=== PATIENT | female | born 1965 | race Caucasian/White ===

== ENCOUNTER 2018-09-30 07:29 | Emergency (ER) | payer OTHER ==
[2018-09-30 07:37] VITALS: BP 120/85; PULSE 85; TEMP 98.2; BMI 23.8
[2018-09-30] MEDS ORDERED: ALBUTEROL SO4 2.5/IPRATROPIUM 0.5 INH SOL 3 ML VIAL.NEB. NEB ONE ×2 (08:02→08:13)
--- NOTE | 2018-09-30 08:19 | PDOC ---
History of Present Illness - General Chief Complaint: Cold Symptoms Stated Complaint: ASTHMA/SHORTNESS OF BREATH Time Seen by Provider: 09/30/18 07:52 History Source: Patient Exam Limitations: Clinical Condition - History of Present Illness Initial Comments: 09/30/18 08:15 Patient with history of asthma and anxiety present with complaint of one month history of persistent cough, nasal congestion, runny nose and intermittent shortness of breath. Patient reported she has had 3 visits to urgent care and was treated with a nebulizer for asthma exacerbation discharged home on prednisone for symptoms still persist. Patient reported had x-rays done over week ago which was normal. Patient report fatigue for over 2 weeks now. Patient denies fever, chills, nausea or vomiting. Patient denies shortness of breath now or chest pain. Patient denies any other symptoms Timing/Duration: other (1 month) Past History - Past Medical History Allergies/Adverse Reactions: Allergies Allergy/AdvReac Type Severity Reaction Status Date / Time No Known Allergies Allergy Verified 09/30/18 07:36 Home Medications: Ambulatory Orders Albuterol Sulfate Inhaler - [Ventolin Hfa Inhaler -] 1 - 2 inh PO Q4H 09/30/18 Duloxetine HCl [Cymbalta] 60 mg PO DAILY 09/30/18 Ipratropium [place] 2 spray NS BID PRN #1 spray 09/30/18 Loratadine 10 mg PO DAILY #10 capsule 09/30/18 Lorazepam [Ativan] 1 mg PO DAILY 09/30/18 Methylprednisolone [Medrol Dose Clive] 4 mg PO ASDIR #21 tablet 09/30/18 Tramadol HCl [Tramadol HCl ER] 200 mg PO HS 09/30/18 Asthma: Yes COPD: No Dialysis: No Hypercholesterolemia: No Other medical history: Rheumatoid artritis, Anxiety - Surgical History Cardiac Surgery: No - Suicide/Smoking/Psychosocial Hx Smoking History: Former smoker Have you smoked in the past 12 months: No Information on smoking cessation initiated: No Hx Alcohol Use: No Drug/Substance Use Hx: No Review of Systems - Review of Systems Able to Perform ROS?: Yes Is the patient limited Spanish proficient: No Constitutional: Yes: Malaise. No: Chills, Fever HEENTM: Yes: Symptoms Reported, See HPI, Nose Congestion. No: Eye Pain, Blurred Vision, Tearing, Recent change in vision, Double Vision, Cataracts, Ear Pain, Ocular Prothesis, Ear Discharge, Nose Pain, Tinnitus, Nose Bleeding, Hearing Loss, Throat Pain, Throat Swelling, Mouth Pain, Dental Problems, Difficulty Swallowing, Mouth Swelling, Other Respiratory: Yes: Symptoms reported, See HPI, Cough, Shortness of Breath ( intermittent), Wheezing. No: Orthopnea, SOB with Exertion, SOB at Rest, Stridor , Productive cough, Hemoptysis, Other Cardiac (ROS): No: Symptoms Reported, See HPI, Chest Pain, Edema, Irregular Heart Rate, Lightheadedness, Palpitations, Syncope, Chest Tightness, Other ABD/GI: No: Nausea, Vomiting All Other Systems: Reviewed and Negative *Physical Exam - Vital Signs Last Vital Signs Temp Pulse Resp BP Pulse Ox 98.2 F 85 18 120/85 100 09/30/18 07:34 09/30/18 07:34 09/30/18 07:34 09/30/18 07:34 09/30/18 07:34 - Physical Exam Comments: 09/30/18 08:18 GENERAL: Well developed, well nourished. Awake and alert. No acute distress. HEENT: Normocephalic, atraumatic. PERRLA, EOMI. No conjunctival pallor. Sclera are non-icteric. Moist mucous membranes. Oropharynx is clear. NECK: Supple. Full ROM. CARDIOVASCULAR: Regular rate and rhythm. No murmurs, rubs, or gallops. Distal pulses are 2+ and symmetric. PULMONARY: Mild diffuse wheezing. No evidence of respiratory distress. No rales or rhonchi. ABDOMINAL: Soft. Non-tender. Non-distended. No rebound or guarding. No organomegaly. Normoactive bowel sounds. EXTREMITIES: No cyanosis. SKIN: Warm and dry. Normal capillary refill. No rashes. No jaundice. NEUROLOGICAL: Alert, awake, appropriate. Gait is normal without ataxia. PSYCHIATRIC: Cooperative. Good eye contact. Appropriate mood General Appearance: Yes: Nourished, Appropriately Dressed. No: Apparent Distress Moderate Sedation - Procedure Monitoring Vital Signs: Procedure Monitoring Vital Signs Temperature 98.2 F 09/30/18 07:34 Pulse Rate 85 09/30/18 07:34 Respiratory Rate 18 09/30/18 07:34 Blood Pressure 120/85 09/30/18 07:34 O2 Sat by Pulse Oximetry (%) 100 09/30/18 07:34 ED Treatment Course - RADIOLOGY Radiology Studies Ordered: Category Date Time Status CHEST PA & LAT [RAD] Stat Radiology 09/30/18 08:01 Taken Medical Decision Making - Medical Decision Making 09/30/18 08:22 Patient with history of asthma and anxiety present with complaint of one month history of persistent cough, nasal congestion, runny nose and intermittent shortness of breath. Patient reported she has had 3 visits to urgent care and was treated with a nebulizer for asthma exacerbation discharged home on prednisone for symptoms still persist. Patient reported had x-rays done over week ago which was normal Clinical exam significant for mild diffuse wheezing with no rhonchi or rales otherwise unremarkable exam. Chest x-ray ordered shows no acute infiltrate and normal. Nebulizer treatment with albuterol and Atrovent ordered. Patient's symptoms likely poorly controlled asthma. Patient be discharged home on antihistamine, Tessalon Perles for cough and prednisone with pulmonology follow- up. *DC/Admit/Observation/Transfer Diagnosis at time of Disposition: Asthma Qualifiers: Asthma severity: moderate Asthma persistence: persistent Asthma complication type: with acute exacerbation Qualified Code(s): J45.41 - Moderate persistent asthma with (acute) exacerbation URI (upper respiratory infection) Qualifiers: URI type: unspecified URI Qualified Code(s): J06.9 - Acute upper respiratory infection, unspecified - Discharge Dispostion Disposition: HOME Condition at time of disposition: Stable Decision to Admit order: No - Prescriptions Prescriptions: Ipratropium [place] 2 spray NS BID PRN #1 spray PRN Reason: nasal congestion Loratadine 10 mg PO DAILY #10 capsule Methylprednisolone [Medrol Dose Clive] 4 mg PO ASDIR #21 tablet - Referrals Referrals: Gen Quintanilla MD [Staff Physician] - - Patient Instructions Printed Discharge Instructions: DI for Asthma -- Adult Additional Instructions: Your chest x-ray was normal. The symptoms is likely from poorly controlled asthma caused by weather change. Take medications as prescribed. Follow-up referred director of assisted living as soon as possible. - Post Discharge Activity
== END 2018-09-30 08:59 | disposition home or self-care (01) ==
LOC: JER 07:29
PROC: 3E0F7GC Introduction of Other Therapeutic Substance into Respiratory Tract, Via Natural or Artificial Opening (ICD-10-PCS; principal; 2018-09-30)
DX: J45.41 Moderate persistent asthma with (acute) exacerbation (principal); F41.9 Anxiety disorder, unspecified; M06.9 Rheumatoid arthritis, unspecified
CPT/HCPCS: 71046-TC-FY; 94640; 99282-25